=== PATIENT | female | born 1995 | race African-American/Black ===

== ENCOUNTER 2018-09-25 07:09 | Emergency (ER) | payer SELFPAY ==
[~2018-09-25] VITALS: Ht 167.6 cm; Wt 117.9 kg
[2018-09-25 07:09] VITALS: BP 130/81
[2018-09-25] MEDS ORDERED: AZIT250T6 PO (07:43)
[2018-09-25] MEDS ORDERED: PRED50TA PO (07:43)
[2018-09-25] MEDS ORDERED: BENZ100C PO (07:43)
--- NOTE | 2018-09-25 07:48 | PHYS DOC ---
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 Complains of a cough over the last 7-10 days. Cough has been dry and nonproductive. She states the symptoms do keep her up at night and she c/o of congestion in the mornings causing her difficulty breathing when she awakens. No hx of asthma. She also has upper airway congestion, runny nose, sore throat. She denies fever but endorses chills. She does not have menstrual cycles currently because of the control she is using. No rash. Review of Systems Review of Systems Constitutional: Denies fever Eyes: Denies eye complaints HENT: + nasal congestion or sore throat Respiratory: Denies asthma or wheezing Cardiovascular: No additional information not addressed in HPI GI: Denies abdominal pain, nausea, vomiting Musculoskeletal: Denies back pain or joint pain Integument: Denies rash Neurologic: Denies headache All other systems were reviewed and found to be within normal limits, except as documented in this note. Allergies Allergies Allergies Coded Allergies Type Severity Reaction Last Updated Verified No Known Drug Allergies 02/17/14 No Physical Exam Physical Exam Constitutional: Well developed, well nourished, no acute distress, non-toxic appearance, dry cough present during the examination HENT: Normocephalic, atraumatic, bilateral external ears normal, oropharynx moist, no oral exudates, nose normal. Eyes: PERRLA, EOMI, conjunctiva normal, no discharge Neck: Normal range of motion, no tenderness, supple Cardiovascular:Heart rate regular rhythm, no murmur Lungs & Thorax: Bilateral breath sounds clear to auscultation Abdomen: Bowel sounds normal, soft, no tenderness Skin: Warm, dry, no erythema Neurologic: Alert and oriented X 3 Current Patient Data Vital Signs Vital Signs Date Time Temp Pulse Resp B/P (MAP) Pulse Ox O2 Delivery O2 Flow Rate FiO2 09/25/18 07:09 97.9 109 20 130/81 (97) 97 Room Air 97.9 EKG EKG [] Radiology/Procedures Radiology/Procedures [] Course & Med Decision Making Course & Med Decision Making Pertinent Labs and Imaging studies reviewed. (See chart for details) Patient is seen and examined in the emergency department. Her lungs are clear but she does have a very frequent dry hacking cough during the exam. She is placed on a short course of prednisone and given Tessalon Perles for symptom relief. Also provided azithromycin Rx. Patient is advised follow-up with her primary care doctor but states she does not have a primary care doctor. So advised to come back to the ER for any new or worsening symptoms. Addendum: Upon receiving the d/c paperwork, the patient becomes angry that she is being discharged and questioning her care. I return to the room and attempted to have civil conversation with the patient but she immediately threatened me with litigation because she was not satisfied with the care provided. The patient went on to say she had open-heart surgery as a child and that nobody would take her complaints seriously. She was concerned that she could have pneumonia. I advised her that I gave her the proper treatment for community-acquired pneumonia, and azithromycin as well as some medications for symptom control. I asked the patient directly what else I could do for her to assess her expectations. At this point, the patient stated she just wanted to leave and that she didn't want any of her d/c paperwork. The nurse ultimately did provide the patient with her d/c papers but patient did not leave the ER happy about her care. She was given antibiox, tessalon pearles, azithromycin. The hope is that the prednisone could calm any airway inflammation that may be contributing to her cough. She had no wheezing and good air mvt. No crackles or other adventitious lung sounds to auscultation. Dragon Disclaimer Dragon Disclaimer This electronic medical record was generated, in whole or in part, using a voice recognition dictation system. Departure Departure Impression: Primary Impression: Bronchitis Additional Impression: Cough Disposition: 01 HOME, SELF-CARE Condition: GOOD Patient Instructions: Bronchitis, [id number], Cough, Adult, [id number] Scripts Benzonatate (TESSALON PERLE) 100 Mg Capsule 100 MG PO TID PRN for COUGH for 7 Days, #21 CAP Prov: VALERIA ALLEN DO 09/25/18 Prednisone (PREDNISONE) 50 Mg Tablet 1 TAB PO DAILY, #5 TAB Prov: VALERIA ALLEN DO 09/25/18 Azithromycin (AZITHROMYCIN TABLET) 250 Mg Tablet 1 PKG PO UD, #6 TAB Take 2 tablets on day one followed by 1 tablet daily until gone Prov: VALERIA ALLEN DO 09/25/18 Problem Qualifiers VALERIA ALLEN DO Sep 25, 2018 07:48
== END 2018-09-25 08:05 | disposition home or self-care (01) ==
LOC: ER 07:09
DX: J40 Bronchitis, not specified as acute or chronic (principal)
CPT/HCPCS: 99283